=== PATIENT | female | born 1960 | race Caucasian/White ===

== ENCOUNTER → 2016-08-05 | Day surgery (SDC) | payer OTHER ==
[~2016-08-05] VITALS: Ht 170.2 cm; Wt 141.1 kg
[~2016-08-05] MED LIST: AMITRIPTYLINE H25 MG PO; AMITRIPTYLINE150 M2 PO; AMOXIL 875 MG875 MG PO; ASPIRIN EC81 M1 PO; CLONAZEPAM0.5 MG PO; CLONAZEPAM1 M2 PO; CYCLOBENZAPRINE10 M1 PO; DICYCLOMINE HCL10 M1 PO; FISH OIL PO; GABAPENTIN300 MG PO; GABAPENTIN600 M1 PO; IBUPROFEN600 M1 PO; KLONOPIN1 M1 PO; MAGNESIUM400 M1 PO; MINIPRESS1 MG PO; NATURAL IRON65 MG PO; PANTOPRAZOLE SO40 M1 PO; PERCOCET 5-3251 EACH PO; PRAZOSIN HCL1 MG PO; QUALITY CHOICE200 M1 PO; RESTASIS1 EACH OPH; STROVITE ONE1 TAB PO; TEGRETOL200 M1 PO; TOPROL XL100 M1 PO; TYLOPHEN500 MG PO; ULTRAM50 M1 PO; VICODIN5-300 PO
--- NOTE | 2016-08-05 16:25 | Operative Report ---
Operative/Inv Procedure Report Surgery Date: 08/05/16 Name of Procedure: Release Guyon's canal right hand Pre-Operative Diagnosis: Rule out ulnar nerve compression right hand Post-Operative Diagnosis: Same Estimated Blood Loss: scant Surgeon/Dental Equipment Mechanic: MACY GRIGGS,AL[place]ANDRI[place] Estrada Anesthesia: laryngeal mask airway Operative/Procedure Note Note: Patient was counseled Thompson proceeded the alternatives risks and expected outcomes as relates to her request for surgical intervention to improve pain and numbness involving the small and partial ring finger. Symptoms are distal to the wrist with some retrograde component. EMG equivocal for full diagnosis patient is willing to attempt improvement via release of any tissues on the ulnar nerve the hand. Patient was fully counseled the procedure might not provide symptomatic relief stent and can provide pain numbness injury to surrounding structures including nerves arteries veins and tendons numbness in the palm and/or fingers pain and open wound sensitivity to the scar once the patient agreed informed consent was signed. She was taken to the operating room placed supine on the table. Venodyne which are placed and then laryngeal mask anesthesia was established intravenous antibiotic given. Fashion. Tourniquet was placed on the proximal forearm. Incision was placed subcutaneous tissue. The ligament was divided in the hyperthenar muscle fascia was removed off the hamate. 5 without obstruction. The incision was brought back proximally in a Juan A fashion across the wrist to remove any antebrachial fascia causing compression. Once the nerve was seen to be free within the fat the wound was irrigated and closed. No other pathology was seen.
== END ==
LOC: STS 01:18
DX: M79.641 Pain in right hand (principal); M79.644 Pain in right finger(s); R20.0 Anesthesia of skin; I47.1 Supraventricular tachycardia; Z79.82 Long term (current) use of aspirin
CPT/HCPCS: J0690; J2250

== ENCOUNTER 2016-09-22 22:51 | Emergency (ER) | payer OTHER ==
[~2016-09-22] VITALS: Ht 170.2 cm; Wt 141.1 kg
[~2016-09-22 22:51] MED LIST changes: -CYCLOBENZAPRINE10 M1 PO; -FISH OIL PO; -ULTRAM50 M1 PO
[2016-09-22] MEDS ORDERED: FISH OIL PO (23:24)
[2016-09-22 23:27] VITALS: BP 110/78
--- NOTE | 2016-09-23 01:35 | ED NECK/BACK PAIN COMPLAINT ---
History of Present Illness General Chief Complaint: Neck/Upper Back Pain/Injury Stated Complaint: BACK PAIN RADIATING DOWN LEG X 1 WEEK Source: patient Exam Limitations: no limitations Vital Signs & Intake/Output Vital Signs & Intake/Output Vital Signs Date Time Temp Pulse Resp B/P B/P Pulse O2 O2 Flow FiO2 Mean Ox Delivery Rate 09/22 2327 97.3 81 18 110/78 95 Room Air ED Intake and Output 09/23 0000 09/22 1200 Intake Total Output Total Balance Patient 311 lb Weight Weight Reported by Patient Measurement Method Allergies Coded Allergies: caffeine (PANIC ATTACKS 09/22/16) Reconcile Medications Amitriptyline HCl 150 MG TABLET 1 TAB PO DAILY SLEEP (Reported) Aspirin (Ecotrin*) 81 MG TABLET.DR 1 TAB PO DAILY S/P CARDIAC ABLATION ( Reported) Carbamazepine (Tegretol) 200 MG TABLET 1 TAB PO BID TMJ (Reported) Clonazepam (Klonopin) 1 MG TABLET 1 TAB PO TIDPRN ANXIRTY (Reported) Cyclobenzaprine HCl 10 MG TABLET 1 TAB PO 4 TIMES/DAY PRN MUSCLE SPASM Cyclosporine (Restasis) 1 EACH DROPERETTE 1 GTT OPH BID BOTH EYES - DRY EYES (Reported) Dicyclomine HCl 10 MG CAPSULE 1 CAP PO TID ? (Reported) [FISH OIL] 21 TAB PO DAILY SUPPLEMENT (Reported) Gabapentin 600 MG TABLET 1 TAB PO TID PAIN (Reported) Ibuprofen 600 MG TABLET 2 TAB PO 4X PER DAY PAIN (Reported) Magnesium Oxide (Magnesium) 400 MG CAPSULE 1 CAP PO DAILY SUPPLEMENT ( Reported) Metoprolol Succ XL (Toprol XL) 100 MG TAB.ER.24H 1 TAB PO DAILY BP (Reported) Prazosin Hydrochloride (Minipress) 1 MG CAPSULE 1 CAP PO TID HTN (Reported) Tramadol HCl (Ultram) 50 MG TABLET 1-2 TAB PO BIDP PRN pain twenty...[id number] Triage Note: TRIAGE: PATIENT TO ER W/ ENTIRE BACK PAIN X 1 WEEK, REPORTS "I HAVE A DENTIST APPT TOMORROW AND DON'T THINK I CAN SIT IN A CHAIR FOR AN HOUR BEAUSE MY BACK HURTS TOO MUCH." HX SCIATICA. DENIES ANY KNOWN INJURIES TO BACK, PAIN INC W/ POSITION CHANGES. DENIES URINARY SX. Triage Nurses Notes Reviewed? yes Onset: Gradual Duration: day(s): Timing: recent history Quality/Severity: mild, moderate Location: lumbar spine Radiation: buttocks Context: "I have bad neuropathy" Method of Injury: unknown HPI: 55-year-old woman history of neuropathy and chronic back pain presents with bilateral lower lumbar back pain radiating to her left buttock. She states that she's been taking 2 g of Tylenol 3 or 4 times a day without great effect. She notes sensation of muscle spasm and tightness along her lower back. She has no dysuria abdominal pain nausea vomiting diarrhea chest pain or shortness of breath. She is otherwise well and has no other concerns. Past History Travel History Traveled to [place] past 21 day No Medical History Any Pertinent Medical History? see below for history Neurological: restless leg syndrome EENT: NONE Cardiovascular: syncope, MITRAL VALVE PROLAPSE VASOVAGAL SYNCOPE SVT LVH Respiratory: NONE Gastrointestinal: hiatal hernia Hepatic: NONE Renal: NONE Musculoskeletal: ARTHRITIS Psychiatric: anxiety, insomnia, PANIC DISORDER Endocrine: NONE Blood Disorders: anemia, SJOGRENS Cancer(s): NONE REPORT ANALYST/Reproductive: NONE Surgical History Surgical History: non-contributory Psychosocial History What is your primary language Sinhala Tobacco Use: Never used Family History Hx Contributory? No Review of Systems Review of Systems Constitutional: Reports: no symptoms. Eyes: Reports: no symptoms. Ears, Nose, Throat, Mouth: Reports: no symptoms. Respiratory: Reports: no symptoms. Cardiovascular: Reports: no symptoms. Gastrointestinal/Abdominal: Reports: no symptoms. Musculoskeletal: Reports: no symptoms. Skin: Reports: no symptoms. Neurological/Psychological: Reports: no symptoms. All Other Systems: Reviewed and Negative Physical Exam Physical Exam General Appearance: well developed/nourished, mild distress Head: atraumatic Eyes: Bilateral: PERRL, EOMI. Ears, Nose, Throat, Mouth: hearing grossly normal Neck: normal inspection, supple, full range of motion Respiratory: normal breath sounds, chest non-tender, no respiratory distress, quiet respiration, lungs clear Cardiovascular: regular rate/rhythm Gastrointestinal: normal bowel sounds, soft, non-tender Back: normal inspection, muscle spasm, no vertebral tenderness Extremities: normal range of motion Neurologic/Psych: awake, alert, oriented x 3, normal mood/affect Skin: intact, normal color, warm/dry Comments: Strength, light touch, deep tendon reflexes in the lower extremities are symmetrical and intact bilaterally Progress Differential Diagnosis: herniated disc, myofascial strain, sciatica, ureterolithiasis Plan of Care: Orders Procedure Date/time Status URINALYSIS 09/23 2327 Complete Laboratory Tests 09/22/162337: Urine Color YEL, Urine Clarity CLEAR, Urine pH 7.0, Ur Specific [place] 1.010, Urine Protein NEG, Urine Ketones NEG, Urine Nitrite NEG, Urine Bilirubin NEG, Urine Urobilinogen 0.2, Ur Leukocyte Esterase NEG, Ur Microscopic SEDIMENT EXAMINED, Urine RBC RARE, Urine WBC RARE, Ur Epithelial Cells RARE, Urine Hemoglobin TRACE-INTACT, Urine Glucose NEG Departure Departure Disposition: HOME OR SELF CARE Condition: Stable Clinical Impression Primary Impression: Back pain Referrals: DEONNA THORNTON MD (PCP/Family) Departure Forms: Customer Survey General Discharge Information Prescriptions: Current Visit Scripts Tramadol HCl (Ultram) 1-2 TAB PO BIDP PRN pain #20 TAB twenty...[id number] Cyclobenzaprine HCl 1 TAB PO 4 TIMES/DAY PRN MUSCLE SPASM #30 TAB Ref 1 Comments discussed at length with patient. she will follow up with dr. thornton later today. she is also awaiting referral for market specialist. rx for ultram and flexeril sent to pharmacy. close follow up advised.
[2016-09-23] MEDS ORDERED: ULTRAM50 M1 PO (02:20)
[2016-09-23] MEDS ORDERED: CYCLOBENZAPRINE10 M1 PO (02:20)
== END 2016-09-23 02:21 ==
LOC: ERH 22:51
DX: M54.5 Low back pain (principal)
CPT/HCPCS: 81001

== ENCOUNTER 2016-10-21 15:57 | Emergency (ER) | payer OTHER ==
[~2016-10-21] VITALS: Ht 170.2 cm; Wt 136.5 kg
[~2016-10-21 15:57] MED LIST changes: +CYCLOBENZAPRINE10 M1 PO; +FISH OIL PO; +ULTRAM50 M1 PO
--- NOTE | 2016-10-21 17:52 | ED SKIN/ALLERGY COMPLAINT ---
History of Present Illness General Chief Complaint: General Adult Stated Complaint: POISON JOSEFINA Source: patient, old records Exam Limitations: no limitations Vital Signs & Intake/Output Vital Signs & Intake/Output Vital Signs Date Time Temp Pulse Resp B/P B/P Pulse O2 O2 Flow FiO2 Mean Ox Delivery Rate 10/21 1826 98.6 76 18 132/84 98 Room Air 10/21 1601 96.3 96 18 143/90 99 Room Air Allergies Coded Allergies: caffeine (PANIC ATTACKS 09/22/16) Reconcile Medications Amitriptyline HCl 150 MG TABLET 1 TAB PO DAILY SLEEP (Reported) Amoxicillin/Clavulanate Potass (Amox-Clav 875-125 MG Tablet) 875 MG-125 MG TABLET 1 TAB PO BID ANTIBIOTIC (Reported) Aspirin (Ecotrin*) 81 MG TABLET.DR 1 TAB PO DAILY S/P CARDIAC ABLATION ( Reported) Calamine 180 ML LOTION 1 MITZI TOP PRN ITCHING (Reported) Carbamazepine (Tegretol) 200 MG TABLET 1 TAB PO BID TMJ (Reported) Clonazepam (Klonopin) 1 MG TABLET 1 TAB PO TIDPRN ANXIRTY (Reported) Cyclosporine (Restasis) 1 EACH DROPERETTE 1 GTT OPH BID BOTH EYES - DRY EYES (Reported) Dicyclomine HCl 10 MG CAPSULE 1 CAP PO DAILY IBS (Reported) Gabapentin (Neurontin) 300 MG CAPSULE 900 MG PO DAILY NERVE PAIN (Reported) Hydroxyzine HCl 50 MG TABLET 1 TAB PO TID PRN PRURITUS Ibuprofen (Advil) 200 MG CAPSULE 6-8 TAB PO DAILY PAIN (Reported) Magnesium Oxide (Magnesium) 400 MG CAPSULE 1 CAP PO DAILY SUPPLEMENT ( Reported) Metoprolol Succ XL (Toprol XL) 100 MG TAB.ER.24H 1 TAB PO DAILY BP (Reported) [place]-3 Fatty Acids/Fish Oil (Fish Oil 1,200 MG Softgel) 360 MG-1,200 MG CAPSULE 1 CAP PO DAILY SUPPLEMENT (Reported) Prazosin Hydrochloride (Minipress) 1 MG CAPSULE 1 CAP PO TID PTSD (Reported) Prednisone 10 MG TABLET 0 PO DAILY dermatitis 6 tabs po day 1 5 tabs po day 2 4 tabs po day 3 3 tabs po day 4 2 tabs po day 5 1 tab po day 6 Triamcinolone Acetonide 0.1 % CREAM..G. 1 MITZI TOP TID PRN ITCHING (Reported) Triage Note: 56 Y/O FEMALE C/O POISON JOSEFINA TO ALL EXPOSED SKIN SINCE September. STATES SHE WAS EVAL'D AT WALK IN TWICE AND IS HAVING NO RELIEF WITH TOPICAL STEROID CREAM. Triage Nurses Notes Reviewed? yes Onset: Abrupt Duration: week(s): (2), constant Timing: recent history Severity: moderate Severity Numbers: 6 Location: extremities No Modifying Factors: none Associated Symptoms: denies HPI: 56-year-old male presents to ER for evaluation complaining of 2 week history of poison josefina to her forearms has now spread to her legs and abdomen. She was seen at an urgent care and was prescribed triamcinolone cream which she's been applying without improvement. She denies fever chills sick contacts recent travel. The patient has been attempting to pop the sores in 4 Cole peroxide on it without improvement no modifying factors or associated symptoms otherwise Past History Travel History Traveled to [place] past 21 day No Medical History Any Pertinent Medical History? see below for history Neurological: restless leg syndrome EENT: NONE Cardiovascular: syncope, MITRAL VALVE PROLAPSE VASOVAGAL SYNCOPE SVT LVH Respiratory: NONE Gastrointestinal: hiatal hernia Hepatic: NONE Renal: NONE Musculoskeletal: ARTHRITIS Psychiatric: anxiety, insomnia, PANIC DISORDER Endocrine: NONE Blood Disorders: anemia, SJOGRENS Cancer(s): NONE SACK LIFTER/Reproductive: NONE Surgical History Surgical History: non-contributory Psychosocial History What is your primary language Nicaraguan Tobacco Use: Never used Family History Hx Contributory? No Review of Systems Review of Systems Constitutional: Reports: no symptoms. Comments Review of systems: See HPI, All other systems negative. Constitutional, no chills no fever, no malaise HEENT: no sore throat no congestion Cardiovascular: No chest pain , no palpitation , Skin: see hpi Respiratory: No dyspnea no cough no sputum GI: No nausea no vomiting, no diarrhea, no bloating/constipation : No dysuria Muscle skeletal: No joint pain no back pain, no neck pain, Neurologic: No numbness , Psych: No stress Heme/endocrine: No bruising Immunology: No lymphadenopathy Physical Exam Physical Exam General Appearance: well developed/nourished, no apparent distress, alert, awake Comments: Well-developed well-nourished patient in no apparent distress. HEENT: Atraumatic, extraocular motion intact Neck: Supple, FROM Back: FROM Cardiovascular: Regular rate and rhythms no murmurs rubs or gallops, Respiratory: No respiratory distress. Patient speaking in full complete sentences. Breath sounds clear to auscultation bilaterally: NO W/R/R Extremities: full range of motion Neuro: awake, alert, and oriented to person, place and time. There were no obvious focal neurologic abnormalities. Skin: Warm & dry; vesicular rash noted to the right and left volar forearm Psych: Mood affect normal, normal memory normal judgment. Progress Differential Diagnosis: abscess/cellulitis, allergic reaction, anaphylaxis, angioedema, contact dermatitis, drug reaction, erythema multiforme, shingles Plan of Care: I discussed with the patient at length all of their results. I had an extensive conversation regarding need for close follow up with their primary care physician this week as well as return precautions. I answered all of their questions, they feel comfortable with the plan and follow-up care. I discussed with the patient/family the medications that they will receive. I gave them signs and symptoms that could indicate an adverse reaction. I have advised them to limit their activities until they can see how they respond to the medication. Departure Departure Time of Disposition: 1810 Disposition: HOME OR SELF CARE Condition: Stable Clinical Impression Primary Impression: Contact dermatitis Referrals: DEONNA BOOTH MD (PCP/Family) Additional Instructions: Prednisone as directed, hydroxyzine for itching this may make you drowsy, follow up with her primary care physician and return to the ER with any concerns Departure Forms: Customer Survey General Discharge Information Prescriptions: Current Visit Scripts Prednisone 0 PO DAILY #21 TAB 6 tabs po day 1 5 tabs po day 2 4 tabs po day 3 3 tabs po day 4 2 tabs po day 5 1 tab po day 6 Hydroxyzine HCl 1 TAB PO TID PRN PRURITUS #21 TAB
[2016-10-21] MEDS ORDERED: FISH OIL 1,2001 EAC4 PO (18:13)
[2016-10-21] MEDS ORDERED: NEURONTIN300 M1 PO (18:14)
[2016-10-21] MEDS ORDERED: ADVIL200 M1 PO (18:16)
[2016-10-21] MEDS ORDERED: TRIAMCINOLONE A15 G1 TOP (18:17)
[2016-10-21] MEDS ORDERED: AMOX-CLAV 875-1 EACH PO (18:17)
[2016-10-21] MEDS ORDERED: CALAMINE180 ML TOP (18:18)
[2016-10-21] MEDS ORDERED: HYDROXYZINE HCL50 M1 PO (18:20)
[2016-10-21] MEDS ORDERED: PREDNISONE10 M2 PO (18:20)
[2016-10-21 18:26] VITALS: BP 132/84
== END 2016-10-21 18:26 ==
LOC: ERH 15:57
DX: L25.9 Unspecified contact dermatitis, unspecified cause (principal)

== ENCOUNTER 2017-12-21 17:42 | Emergency (ER) | payer OTHER ==
[~2017-12-21] VITALS: Ht 170.2 cm; Wt 123.4 kg
[~2017-12-21 17:42] MED LIST changes: +ADVIL200 M1 PO; +AMOX-CLAV 875-1 EACH PO; +CALAMINE180 ML TOP; +FISH OIL 1,2001 EAC4 PO; +HYDROXYZINE HCL50 M1 PO; +KEFLEX500 M1 PO; +NEURONTIN300 M1 PO; +PREDNISONE10 M2 PO; +TRIAMCINOLONE A15 G1 TOP
--- NOTE | 2017-12-21 18:10 | ED UPPER/LOWER EXTREMITY COMPL ---
History of Present Illness General Chief Complaint: Lower Extremity Problems Stated Complaint: LEFT KNEE PAIN Source: patient Exam Limitations: no limitations Vital Signs & Intake/Output Vital Signs & Intake/Output Vital Signs Date Time Temp Pulse Resp B/P B/P Pulse O2 O2 Flow FiO2 Mean Ox Delivery Rate 12/21 1806 97.0 89 18 123/77 98 Room Air Allergies Coded Allergies: adhesive tape (BLISTERS, PER PT PAPER TAPE IS THE BEST BUT PREFERS NONE 12/21/17 ) caffeine (PANIC ATTACKS 09/22/16) Reconcile Medications Amitriptyline HCl 150 MG TABLET 1 TAB PO QHS SLEEP (Reported) Aspirin (Ecotrin*) 81 MG TABLET.DR 1 TAB PO DAILY S/P CARDIAC ABLATION ( Reported) Carbamazepine (Tegretol) 200 MG TABLET 1 TAB PO BID TRIGEMINAL NEURALGIA ( Reported) Clonazepam (Klonopin) 1 MG TABLET 1 TAB PO TIDPRN ANXIRTY (Reported) Cyclosporine (Restasis) 1 EACH DROPERETTE 1 GTT OPH BID BOTH EYES - DRY EYES (Reported) Gabapentin (Neurontin) 300 MG CAPSULE 900 MG PO DAILY NERVE PAIN (Reported) Magnesium Oxide (Magnesium) 400 MG CAPSULE 1 CAP PO DAILY SUPPLEMENT ( Reported) Metoprolol Succ XL (Toprol XL) 100 MG TAB.ER.24H 1 TAB PO DAILY BP (Reported) [place]-3 Fatty Acids/Fish Oil (Fish Oil 1,000 MG Softgel) 340 MG-1,000 MG CAPSULE 1 CAP PO DAILY SUPPLEMENT (Reported) Omeprazole 20 MG CAPSULE.DR 1 CAP PO DAILY GI (Reported) Oxycodone HCl/Acetaminophen (Percocet 5-325 MG Tablet) 5 MG-325 MG TABLET 1 TAB PO BID PRN pain Prazosin Hydrochloride (Minipress) 1 MG CAPSULE 1 CAP PO TID PTSD (Reported) Topiramate (Topamax) 100 MG TABLET 1 TAB PO DAILY NEUROPATHY AND EATING DISORDER (Reported) Triage Nurses Notes Reviewed? yes Onset: Gradual Duration: week(s): Timing: recent history Severity: moderate Pain/Injury Location: Left: Knee. HPI: 57YO FEMALE presents to ED complaining of left knee pain x 1 week. Patient is s/ p left total knee revision 09/2017 (with Dr. Wilner Merritt) and has persistent pain however pain to anterior knee is new for the past week. Patient states the pain has been gradually worsening. Patient admits to taking 8,000mg tylenol daily, she is aware this is overdosing. The patient is concerned because she developed new numbness from left knee down the leg. The patient denies injury, trauma, fevers. (Selin Ritter) Past History Travel History Traveled to [place] past 21 day No Medical History Any Pertinent Medical History? see below for history Neurological: restless leg syndrome EENT: NONE Cardiovascular: syncope, MITRAL VALVE PROLAPSE VASOVAGAL SYNCOPE SVT LVH Respiratory: NONE Gastrointestinal: hiatal hernia Hepatic: NONE Renal: NONE Musculoskeletal: ARTHRITIS Psychiatric: anxiety, insomnia, PANIC DISORDER Endocrine: NONE Blood Disorders: anemia, SJOGRENS Cancer(s): NONE CHICKEN VACCINATOR/Reproductive: NONE Surgical History Surgical History: non-contributory Psychosocial History What is your primary language Japanese Family History Hx Contributory? No (Selin Ritter) Review of Systems Review of Systems Constitutional: Reports: no symptoms. EENTM: Reports: no symptoms. Respiratory: Reports: no symptoms. Cardiovascular: Reports: no symptoms. Gastrointestinal/Abdominal: Reports: no symptoms. Genitourinary: Reports: no symptoms. Musculoskeletal: Reports: see HPI. Skin: Reports: no symptoms. Neurological/Psychological: Reports: see HPI. Hematologic/Endocrine: Reports: no symptoms. Immunological: Reports: no symptoms. All Other Systems: Reviewed and Negative (Selin Ritter) Physical Exam Physical Exam General Appearance: well developed/nourished, no apparent distress, alert, awake Head: atraumatic, normal appearance Eyes: Bilateral: normal appearance. Ears, Nose, Throat: hearing grossly normal Neck: normal inspection, supple, full range of motion Cardiovascular/Respiratory: normal peripheral pulses, no respiratory distress Peripheral Pulses: 2+ dorsalis pedis (L) Back: normal inspection, normal range of motion Knee Left: tenderness to anterior, medial, and posterior knee, no gross deformity or swelling Knee Right: normal range of motion, normal inspection Foot Left: normal inspection, normal range of motion Foot Right: normal inspection, normal range of motion Neurologic/Tendon: normal sensation Skin: intact, normal color, warm/dry (Selin Ritter) Progress Differential Diagnosis: arterial insufficiency, contusion, fracture, septic arthritis, sprain, tendon injury Plan of Care: Orders Procedure Date/time Status ACETOMINOPHEN 12/21 1804 Complete COMPREHENSIVE METABOLIC PANEL 12/21 1804 Complete CBC WITHOUT DIFFERENTIAL 12/21 1804 Complete Laboratory Tests 12/21/171817: Anion Gap 7, Estimated GFR > 60, BUN/Creatinine Ratio 21.3, Glucose 95, Calcium 9.2, Total Bilirubin 0.3, AST 22, ALT 26, Alkaline Phosphatase 137 H, Total Protein 7.4, Albumin 4.3, Globulin 3.1, Albumin/Globulin Ratio 1.4, CBC w Diff NO MAN DIFF REQ, RBC 4.28, MCV 92.2, MCH 30.0, MCHC 32.5 L, RDW 13.6, MPV 8.5, Gran % 42.0 L, Lymphocytes % 47.8, Monocytes % 7.9, Eosinophils % 1.5, Basophils % 0.8, Absolute Granulocytes 2.2, Absolute Lymphocytes 2.5, Absolute Monocytes 0.4, Absolute Eosinophils 0.1, Absolute Basophils 0, Acetaminophen < 10.0 L Patient reportedly taking 8000 mg Tylenol per day, she is aware that this is overdosing however states the pain was too severe. I informed her that she could have permanent liver-related issues if she continues this dose. Tylenol level today labs is <10. Patient's xray imaging is stable. She has intact distal pulses. This patient has chronic pain following previous surgery and has had no new injury. She has no skin changes, erythema, or fever to indicate septic arthritis. Patient to begin pain medication and follow up with her specialist. She is ambulatory here in the ED. Discussed findings with Dr. Hernandez who agrees with the plan of care. Diagnostic Imaging: Viewed by Me: Radiology Read. Discussed w/RAD: Radiology Read. Radiology Impression: PATIENT: JULI CINTRON PRESENT AGE: 57 PATIENT ACCOUNT NO: [id number] : 62 LOCATION: [facility] ORDERING PHYSICIAN: Selin CRUZ SERVICE DATE: 12/21/17 EXAM TYPE: RAD - XRY-KNEE COMPLETE LEFT EXAMINATION: XR KNEE, LEFT CLINICAL INFORMATION: Status post knee replacement. COMPARISON: None TECHNIQUE: Four views of the left knee. FINDINGS: There is total left knee arthroplasty with prosthetic components in satisfactory alignment. No visible acute fracture, dislocation or subluxation seen. There is no joint effusion noted. There are no loose bodies. IMPRESSION: Total left knee arthroplasty with no visible acute fracture or dislocation seen. DICTATED BY: Marcelo Miller MD DATE/TIME DICTATED:1856 VAMP MARKER:JOHN DATE/TIME TRANSCRIBED:12/21/171856 CONFIDENTIAL, DO NOT COPY WITHOUT APPROPRIATE AUTHORIZATION. <Electronically signed in Other Vendor System> SIGNED BY: Marcelo Miller MD 12/21/171902 (Selin Ritter) Departure Departure Disposition: HOME OR SELF CARE Condition: Stable Clinical Impression Primary Impression: Knee pain Referrals: Nichole Enamorado DO (PCP/Family) Additional Instructions: Do not exceed greater than 4000 mg of Tylenol per day. you were prescribed percocet which contains tylenol. Follow-up with orthopedic physician. Return if worsening symptoms or concerns. Please note that there might be incidental findings in your evaluation that are unrelated to the current emergency department visit. Please notify your primary care doctor about this emergency department visit in order to obtain and review all of the testing performed so that these incidental findings can be monitored as needed. If you had an x-ray performed, please understand that some fractures may not be seen on the initial set of x-rays. If your symptoms persist you might need a repeat set of x-rays to check for such a fracture. If you had a laceration evaluated, please understand that foreign bodies such as glass or wood may not be visible to the naked eye or on plain x-rays. If the wound becomes red, swollen, increasingly more painful or if there is any drainage from the wound, please have it reevaluated by a physician for the possibility of a retained foreign body. If you're unable to follow up as outlined in the discharge instructions please return to the emergency department. Thank you for choosing the [facility] Emergency Department for your care. It was a pleasure to serve you today. Departure Forms: Customer Survey General Discharge Information Prescriptions: Current Visit Scripts Oxycodone HCl/Acetaminophen (Percocet 5-325 MG Tablet) 1 TAB PO BID PRN pain #10 TAB (Selin Ritter) PA/ROTARY OPERATOR Co-Sign Statement Statement: ED Attending supervision documentation- I saw and evaluated the patient. I have also reviewed all the pertinent lab results and diagnostic results. I agree with the findings and the plan of care as documented in the PA's/ROTARY OPERATOR's documentation. x I have reviewed the ED Record and agree with the PA's/ROTARY OPERATOR's documentation. [] Additions or exceptions (if any) to the PAs/ROTARY OPERATOR's note and plan are summarized below: [] (David GRIGGS,Vicente)
[2017-12-21 18:41] LABS: ABSOLUTE BASOPHIL COUNT 0 /CUMM (0.0-0.2); ABSOLUTE EOSINOPHIL COUNT 0.1 /CUMM (0.0-0.7); ABSOLUTE GRANULOCYTE CT 2.2 /CUMM (1.4-6.5); ABSOLUTE LYMPH COUNT 2.5 /CUMM (1.2-3.4); ABSOLUTE MONOCYTE COUNT 0.4 /CUMM (0.10-0.60); BASOPHIL % 0.8 % (0.0-2.0); EOSINOPHIL % 1.5 % (0-5); HEMATOCRIT 39.4 % (37-47); MEAN CORPUSCULAR HGB CONC 32.5 G/DL (33.0-37.0); MEAN CORPUSCULAR VOLUME 92.2 FL (81.0-99.0); MEAN PLATELET VOLUME 8.5 FL (7.4-10.4); PLATELET COUNT 205 /CUMM (130-400); RBC DISTRIBUTION WIDTH 13.6 % (11.5-14.5); RED BLOOD CELL CT 4.28 /CUMM (4.20-5.40); WHITE BLOOD CELL COUNT 5.2 /CUMM (4.8-10.8)
--- NOTE | 2017-12-21 19:03 | RADIOLOGY REPORT ---
EXAMINATION: XR KNEE, LEFT CLINICAL INFORMATION: Status post knee replacement. COMPARISON: None TECHNIQUE: Four views of the left knee. FINDINGS: There is total left knee arthroplasty with prosthetic components in satisfactory alignment. No visible acute fracture, dislocation or subluxation seen. There is no joint effusion noted. There are no loose bodies. IMPRESSION: Total left knee arthroplasty with no visible acute fracture or dislocation seen.
[2017-12-21] MEDS ORDERED: TOPAMAX100 M1 PO (20:00)
[2017-12-21] MEDS ORDERED: FISH OIL 1,0001 EAC1 PO (20:00)
[2017-12-21] MEDS ORDERED: OMEPRAZOLE20 M2 PO (20:01)
[2017-12-21] MEDS ORDERED: PERCOCET 5-3251 EACH PO (21:06)
[2017-12-21 21:10] VITALS: BP 121/78
== END 2017-12-21 21:11 ==
LOC: ERH 17:42
PROVIDERS: Physician Assistant
DX: M25.562 Pain in left knee (principal); R20.0 Anesthesia of skin; D64.9 Anemia, unspecified; Z79.82 Long term (current) use of aspirin
CPT/HCPCS: 73562-LT; G0480